=== PATIENT | female | born 1995 | race African-American/Black ===

== ENCOUNTER 2021-09-15 09:54 | Emergency (ER) | payer SELFPAY ==
[~2021-09-15] VITALS: Ht 165.1 cm; Wt 63.5 kg
[2021-09-15 11:42] LABS: CHLORIDE 107 mEq/L (98-107)
[2021-09-15 11:51] LABS: ETHANOL BLOOD < 10 mg/dL
[2021-09-15 11:54] LABS: BASOPHILS % 0.4 % (0.0-2.0); HEMATOCRIT. 34.8 % (36.0-48.0); HEMOGLOBIN. 11.4 g/dL (12.0-16.0); LYMPHOCYTES % 19.3 % (20.0-50.0); MEAN CORPUSCULAR HEMOGLOBIN 27.4 pg (28.0-32.0); MEAN CORPUSCULAR VOLUME 83.9 fL (81.0-99.0); MEAN PLATELET VOLUME 8.9 fl (7.4-10.4); MONOCYTES % 6.2 % (2.0-8.0); NEUTROPHILS % 74.1 % (40.0-76.0); PLATELET 301 x1000/uL (130-400); RED BLOOD CELL COUNT 4.15 mill/uL (4.2-5.4); RED CELL DISTRIBUTION WIDTH 14.2 % (11.6-14.6)
[2021-09-15 11:59] LABS: HCG SCREEN NEGATIVE
[2021-09-15] MEDS ORDERED: POTASSIUM CHLORIDE 20MEQ TABLET SR PO SCH (12:30)
[2021-09-15 13:19] LABS: CLARITY URINE CLOUDY (CLEAR); COLOR URINE YELLOW (YELLOW); KETONES URINE 4+ (NEGATIVE); LEUKOCYTE ESTERASE URINE 3+ (NEGATIVE); NITRITE URINE NEGATIVE (NEGATIVE); OCCULT BLOOD URINE NEGATIVE (NEGATIVE); PH URINE 5.5 (4.5-8.0); PROTEIN URINE 1+ (NEGATIVE); SPECIFIC GRAVITY URINE 1.027 (1.005-1.030)
[2021-09-15] MEDS ORDERED: CEFTRIAXONE 1 G PREMIX 50 ML IV SCH (14:15)
[2021-09-16] MEDS ORDERED: RISPERIDONE 0.5MG TABLET PO SCH (09:00)
[2021-09-16] MEDS ORDERED: NITR-87 MT (10:57)
[2021-09-16 12:30] VITALS: BP 122/67
[2021-09-18 12:49] LABS: *AMPHETAMINES SCREEN URINE NEGATIVE (NEGATIVE); *BARBITURATES SCREEN URINE NEGATIVE (NEGATIVE); *BENZODIAZEPINES SCREEN URINE NEGATIVE (NEGATIVE); *COCAINE SCREEN URINE NEGATIVE (NEGATIVE)
[2021-09-18 12:50] LABS: METHADONE URINE SCREEN NEGATIVE (NEGATIVE); OPIATES URINE SCREEN NEGATIVE (NEGATIVE); PHENCYCLIDINE URINE SCREEN NEGATIVE (NEGATIVE)
[2021-09-18 12:51] LABS: CANNABINOID URINE SCREEN PRESUMTIVE POSITIVE (NEGATIVE)
== END 2021-09-16 12:36 ==
LOC: ER 09:54 → EDBD 09:54 → ER 09-16 12:36
DX: F28 Other psychotic disorder not due to a substance or known physiological condition (principal); N39.0 Urinary tract infection, site not specified; Z20.822 Contact with and (suspected) exposure to COVID-19; D64.9 Anemia, unspecified; E87.6 Hypokalemia
CPT/HCPCS: 36415; 80053; 80305; 80320; 81003; 82962; 84703; 85025; 87086; 96365; 99285; C9803; J0696; U0003; U0005; Z7610; G0480